=== PATIENT | male | born 1970 | race Two or more races ===

== ENCOUNTER 2020-12-30 11:18 | Outpatient (CLI) | payer OTHER | END 2020-12-30 12:53 | disposition home or self-care (01) | LOC: OFIC 805 11:18 | PROVIDERS: ATTEND Otolaryngology Otology & Neurotology | DX: H92.02 Otalgia, left ear (principal); M26.69 Other specified disorders of temporomandibular joint; M26.622 Arthralgia of left temporomandibular joint ==